=== PATIENT | male | born 1960 | race African-American/Black ===

== ENCOUNTER 2022-10-24 10:19 | Inpatient (IN) | payer OTHER ==
[2022-10-24 15:55] VITALS: BMI 20.7
[2022-10-24] MEDS ORDERED: IBUPROFEN 600 MG TABLET (FP) PO PRN (17:15)
[2022-10-24] MEDS ORDERED: BISMUTH SUBSALICYLATE 524 MG/30 ML PO PRN (17:15)
[2022-10-24] MEDS ORDERED: MAG HYDROX/AL HYDROX/SIMETH 30 ML UNIT-DOSE CUP PO PRN (17:15)
[2022-10-24] MEDS ORDERED: MAGNESIUM HYDROX 2400MG/30ML ORAL SUSPENSION 30 ML CUP PO PRN (17:15)
[2022-10-24] MEDS ORDERED: POLYETHYLENE GLYCOL (HEALTHYLAX) 3350 17 GM PACKET PO PRN (17:15)
[2022-10-24] MEDS ORDERED: ACETAMINOPHEN 325 MG TABLET (FP) PO PRN ×2 (17:15)
[2022-10-24] MEDS ORDERED: NALOXONE HCL (KLOXXADO) 8 MG SPRAY NS PRN (17:15)
[2022-10-24] MEDS ORDERED: NICOTINE 10 MG CARTRIDGE (INHALER) IH PRN (17:15)
[2022-10-24] MEDS ORDERED: DICYCLOMINE HCL 10 MG CAPSULE PO PRN (17:15)
[2022-10-24] MEDS ORDERED: LOPERAMIDE HCL 2 MG CAPSULE PO PRN (17:15)
[2022-10-24] MEDS ORDERED: chlordiazePOXIDE HCL 25 MG CAPSULE PO PRN (17:15)
[2022-10-24] MEDS ORDERED: BENZOCAINE/MENTHOL (CHLORASEPTIC ) LOZENGE MM PRN (17:15)
[2022-10-24] MEDS ORDERED: ONDANSETRON *ODT* 4 MG TABLET SL PRN (17:15)
[2022-10-24] MEDS ORDERED: NICOTINE POLACRILEX 2 MG GUM BUC PRN (17:15)
[2022-10-24] MEDS ORDERED: IBUPROFEN 400 MG TABLET (FP) PO PRN (17:15)
[2022-10-24] MEDS: cloNIDine HCL 0.1 MG TABLET PO PRN ×2 (18:29→22:39)
[2022-10-24] MEDS ORDERED: methaDONE HCL 10 MG TABLET (FOR DETOX USE ONLY) PO ONE (18:30)
[2022-10-24] MEDS: MELATONIN 5 MG TABLETS PO SCH (22:38)
[2022-10-24] MEDS: THIAMINE HCL 100 MG TABLET (FP) PO SCH (22:38)
[2022-10-24] MEDS: chlordiazePOXIDE HCL 25 MG CAPSULE PO SCH (22:39)
[2022-10-25] MEDS: chlordiazePOXIDE HCL 25 MG CAPSULE PO SCH ×4 (06:01→22:13)
[2022-10-25] MEDS: cloNIDine HCL 0.1 MG TABLET PO PRN (07:15)
[2022-10-25] MEDS: METHOCARBAMOL 500 MG TABLET PO PRN (10:43)
[2022-10-25] MEDS: PRENATAL VITAMINS W/ FOLIC ACID TABLET (FP) PO SCH (10:43)
[2022-10-25] MEDS: ATENOLOL 25 MG TABLET (FP) PO SCH (10:43)
[2022-10-25] MEDS: NICOTINE 14 MG/24 HOURS TOPICAL PATCH TD SCH (10:46)
[2022-10-25] MEDS: THIAMINE HCL 100 MG TABLET (FP) PO SCH (22:12)
[2022-10-25] MEDS: MELATONIN 5 MG TABLETS PO SCH (22:13)
[2022-10-26] MEDS: chlordiazePOXIDE HCL 25 MG CAPSULE PO SCH ×4 (06:06→22:13)
[2022-10-26] MEDS ORDERED: methaDONE HCL 10 MG TABLET (FOR DETOX USE ONLY) PO ONE (10:00)
[2022-10-26] MEDS: PRENATAL VITAMINS W/ FOLIC ACID TABLET (FP) PO SCH (10:10)
[2022-10-26] MEDS: ATENOLOL 25 MG TABLET (FP) PO SCH (10:11)
[2022-10-26] MEDS: METHOCARBAMOL 500 MG TABLET PO PRN (10:11)
[2022-10-26] MEDS: hydrOXYzine PAMOATE 25 MG CAPSULE (FP) PO PRN (10:11)
[2022-10-26] MEDS: NICOTINE 14 MG/24 HOURS TOPICAL PATCH TD SCH (10:12)
[2022-10-26 12:13] LABS: HEMATOCRIT 31.4 % (35.4-49); HEMOGLOBIN 10.4 GM/dL (11.7-16.9); MCH 28.1 pg (25.7-33.7); MCHC 33.1 g/dl (32.0-35.9); MEAN CELL VOLUME 85.1 fl (80-96); PLATELET COUNT 304 10^3/uL (134-434); RBC 3.69 M/mm3 (4.00-5.60); RDW 14.9 % (11.9-15.9); WHITE BLOOD COUNT 4.7 K/mm3 (4.0-10.0)
[2022-10-26 12:18] LABS: CALCIUM 8.6 mg/dL (8.5-10.1)
[2022-10-26 12:20] LABS: ALBUMIN 2.9 g/dl (3.4-5.0); BLOOD UREA NITROGEN 11.1 mg/dL (7-18)
[2022-10-26 12:23] LABS: CREATININE 0.9 mg/dL (0.55-1.3)
[2022-10-26 12:24] LABS: BILIRUBIN,TOTAL 0.2 mg/dL (0.2-1)
[2022-10-26 12:25] LABS: TOT PROT 5.9 g/dl (6.4-8.2)
[2022-10-26] MEDS: THIAMINE HCL 100 MG TABLET (FP) PO SCH (22:13)
[2022-10-26] MEDS: LACTULOSE 20 GM/30 ML UDC (FOR ORAL USE ONLY) PO SCH (22:14)
[2022-10-26] MEDS: MELATONIN 5 MG TABLETS PO SCH (22:15)
[2022-10-27] MEDS ORDERED: chlordiazePOXIDE HCL 10 MG CAPSULE PO PRN
[2022-10-27] MEDS: chlordiazePOXIDE HCL 10 MG CAPSULE PO SCH ×4 (05:53→22:22)
[2022-10-27] MEDS: LACTULOSE 20 GM/30 ML UDC (FOR ORAL USE ONLY) PO SCH ×3 (05:54→22:22)
[2022-10-27] MEDS: NICOTINE 14 MG/24 HOURS TOPICAL PATCH TD SCH (10:27)
[2022-10-27] MEDS: PRENATAL VITAMINS W/ FOLIC ACID TABLET (FP) PO SCH (10:28)
[2022-10-27] MEDS: METHOCARBAMOL 500 MG TABLET PO PRN (10:28)
[2022-10-27] MEDS: ATENOLOL 25 MG TABLET (FP) PO SCH (10:28)
[2022-10-27] MEDS: hydrOXYzine PAMOATE 25 MG CAPSULE (FP) PO PRN (10:28)
[2022-10-27] MEDS: THIAMINE HCL 100 MG TABLET (FP) PO SCH (22:21)
[2022-10-27] MEDS: MELATONIN 5 MG TABLETS PO SCH (22:21)
[2022-10-28] MEDS: LACTULOSE 20 GM/30 ML UDC (FOR ORAL USE ONLY) PO SCH ×3 (05:33→22:38)
[2022-10-28] MEDS: chlordiazePOXIDE HCL 10 MG CAPSULE PO SCH ×2 (05:33→17:32)
[2022-10-28] MEDS ORDERED: methaDONE HCL 10 MG TABLET (FOR DETOX USE ONLY) PO ONE (10:00)
[2022-10-28] MEDS: ATENOLOL 25 MG TABLET (FP) PO SCH (10:25)
[2022-10-28] MEDS: NICOTINE 14 MG/24 HOURS TOPICAL PATCH TD SCH (10:25)
[2022-10-28] MEDS: METHOCARBAMOL 500 MG TABLET PO PRN (10:25)
[2022-10-28] MEDS: PRENATAL VITAMINS W/ FOLIC ACID TABLET (FP) PO SCH (10:25)
[2022-10-28] MEDS: hydrOXYzine PAMOATE 25 MG CAPSULE (FP) PO PRN (10:25)
[2022-10-28] MEDS: THIAMINE HCL 100 MG TABLET (FP) PO SCH (22:37)
[2022-10-28] MEDS: MELATONIN 5 MG TABLETS PO SCH (22:38)
[2022-10-29] MEDS ORDERED: chlordiazePOXIDE HCL 10 MG CAPSULE PO ONE (05:00)
[2022-10-29] MEDS: LACTULOSE 20 GM/30 ML UDC (FOR ORAL USE ONLY) PO SCH (05:25)
[2022-10-29 09:17] VITALS: BP 116/66; PULSE 60; RESP 18; TEMP 98.4
[2022-10-29] MEDS: NICOTINE 14 MG/24 HOURS TOPICAL PATCH TD SCH (10:41)
[2022-10-29] MEDS: PRENATAL VITAMINS W/ FOLIC ACID TABLET (FP) PO SCH (10:41)
[2022-10-29] MEDS: ATENOLOL 25 MG TABLET (FP) PO SCH (10:42)
[2022-10-29] MEDS: METHOCARBAMOL 500 MG TABLET PO PRN (10:44)
[2022-10-29] MEDS: hydrOXYzine PAMOATE 25 MG CAPSULE (FP) PO PRN (10:44)
== END 2022-10-29 11:37 | disposition other institution (70) | DRG 773 ==
LOC: YASAS 10:19 → Y6N 17:49
PROVIDERS: ADMIT Allergy & Immunology; ATTEND Surgery
PROC: HZ2ZZZZ Detoxification Services for Substance Abuse Treatment (ICD-10-PCS; principal; 2022-10-24)
DX: F11.23 Opioid dependence with withdrawal (principal); F10.230 Alcohol dependence with withdrawal, uncomplicated; F14.20 Cocaine dependence, uncomplicated; F17.210 Nicotine dependence, cigarettes, uncomplicated; F19.24 Other psychoactive substance dependence with psychoactive substance-induced mood disorder; F51.05 Insomnia due to other mental disorder; F41.9 Anxiety disorder, unspecified; R79.89 Other specified abnormal findings of blood chemistry; R76.11 Nonspecific reaction to tuberculin skin test without active tuberculosis; Z56.0 Unemployment, unspecified; Z59.02 Unsheltered homelessness
CPT/HCPCS: 36415; 71046-TC-FY; 80053; 82140; 85027; 86780; 93005; 93010; C9803-CS; U0003; U0005

== ENCOUNTER 2022-10-29 11:44 | Inpatient (IN) | payer OTHER ==
[2022-10-29] MEDS ORDERED: BENZOCAINE/MENTHOL (CHLORASEPTIC ) LOZENGE MM PRN (12:41)
[2022-10-29] MEDS ORDERED: MAG HYDROX/AL HYDROX/SIMETH 30 ML UNIT-DOSE CUP PO PRN (12:41)
[2022-10-29] MEDS ORDERED: MAGNESIUM HYDROX 2400MG/30ML ORAL SUSPENSION 30 ML CUP PO PRN (12:41)
[2022-10-29] MEDS ORDERED: P-EPHED 60MG/TRIPROLIDI 2.5MG TABLET PO PRN (12:41)
[2022-10-29] MEDS ORDERED: POLYETHYLENE GLYCOL (HEALTHYLAX) 3350 17 GM PACKET PO PRN (12:41)
[2022-10-29] MEDS ORDERED: ACETAMINOPHEN 325 MG TABLET (FP) PO PRN (12:41)
[2022-10-29] MEDS ORDERED: guaiFENesin 200 MG/10 ML 10 ML UNIT-DOSE CUPS PO PRN (12:41)
[2022-10-29] MEDS ORDERED: LOPERAMIDE HCL 2 MG CAPSULE PO PRN (12:41)
[2022-10-29] MEDS: LACTULOSE 20 GM/30 ML UDC (FOR ORAL USE ONLY) PO SCH (21:49)
[2022-10-29] MEDS: MELATONIN 5 MG TABLETS PO SCH (21:49)
[2022-10-29] MEDS: THIAMINE HCL 100 MG TABLET (FP) PO SCH (21:49)
[2022-10-30] MEDS: PRENATAL VITAMINS W/ FOLIC ACID TABLET (FP) PO SCH (09:50)
[2022-10-30] MEDS: LACTULOSE 20 GM/30 ML UDC (FOR ORAL USE ONLY) PO SCH ×2 (09:50→21:21)
[2022-10-30] MEDS: NICOTINE 7 MG/24 HOURS TOPICAL PATCH TD SCH (09:50)
[2022-10-30] MEDS: ATENOLOL 25 MG TABLET (FP) PO SCH (10:49)
[2022-10-30 14:26] LABS: URINE APPEARANCE CLEAR; URINE BILIRUBIN NEGATIVE (NEGATIVE); URINE COLOR YELLOW; URINE GLUCOSE (UA) NEGATIVE (NEGATIVE); URINE KETONE NEGATIVE (NEGATIVE); URINE LEUK ESTERASE NEGATIVE (NEGATIVE); URINE NITRITE NEGATIVE (NEGATIVE); URINE PROTEIN NEGATIVE (NEGATIVE); URINE UROBILINOGEN 0.2 mg/dL (0.2-1.0)
[2022-10-30] MEDS: MELATONIN 5 MG TABLETS PO SCH (21:21)
[2022-10-30] MEDS: THIAMINE HCL 100 MG TABLET (FP) PO SCH (21:21)
[2022-10-31] MEDS: PRENATAL VITAMINS W/ FOLIC ACID TABLET (FP) PO SCH (10:44)
[2022-10-31] MEDS: NICOTINE 7 MG/24 HOURS TOPICAL PATCH TD SCH (10:44)
[2022-10-31] MEDS: ATENOLOL 25 MG TABLET (FP) PO SCH (10:45)
[2022-10-31] MEDS: IBUPROFEN 400 MG TABLET (FP) PO PRN (10:45)
[2022-10-31] MEDS: LACTULOSE 20 GM/30 ML UDC (FOR ORAL USE ONLY) PO SCH ×2 (10:46→21:29)
[2022-10-31] MEDS: MELATONIN 5 MG TABLETS PO SCH (21:28)
[2022-10-31] MEDS: THIAMINE HCL 100 MG TABLET (FP) PO SCH (21:28)
[2022-11-01] MEDS: hydrOXYzine PAMOATE 25 MG CAPSULE (FP) PO PRN (06:30)
[2022-11-01] MEDS: PRENATAL VITAMINS W/ FOLIC ACID TABLET (FP) PO SCH (10:22)
[2022-11-01] MEDS: ATENOLOL 25 MG TABLET (FP) PO SCH (10:23)
[2022-11-01] MEDS: NICOTINE 7 MG/24 HOURS TOPICAL PATCH TD SCH (10:23)
[2022-11-01] MEDS: LACTULOSE 20 GM/30 ML UDC (FOR ORAL USE ONLY) PO SCH ×2 (10:23→21:10)
[2022-11-01] MEDS: IBUPROFEN 400 MG TABLET (FP) PO PRN (10:24)
[2022-11-01] MEDS: THIAMINE HCL 100 MG TABLET (FP) PO SCH (21:10)
[2022-11-01] MEDS: MELATONIN 5 MG TABLETS PO SCH (21:10)
[2022-11-02] MEDS: cloNIDine HCL 0.1 MG TABLET PO PRN (06:20)
[2022-11-02] MEDS: hydrOXYzine PAMOATE 25 MG CAPSULE (FP) PO PRN ×2 (06:20→21:28)
[2022-11-02] MEDS: PRENATAL VITAMINS W/ FOLIC ACID TABLET (FP) PO SCH (09:40)
[2022-11-02] MEDS: ATENOLOL 25 MG TABLET (FP) PO SCH (09:40)
[2022-11-02] MEDS: NICOTINE 7 MG/24 HOURS TOPICAL PATCH TD SCH (09:40)
[2022-11-02] MEDS: LACTULOSE 20 GM/30 ML UDC (FOR ORAL USE ONLY) PO SCH ×2 (09:40→21:28)
[2022-11-02] MEDS: IBUPROFEN 400 MG TABLET (FP) PO PRN ×2 (09:41→21:28)
[2022-11-02] MEDS: THIAMINE HCL 100 MG TABLET (FP) PO SCH (21:27)
[2022-11-02] MEDS: MELATONIN 5 MG TABLETS PO SCH (21:27)
[2022-11-03] MEDS: cloNIDine HCL 0.1 MG TABLET PO PRN (05:56)
[2022-11-03] MEDS: hydrOXYzine PAMOATE 25 MG CAPSULE (FP) PO PRN (05:56)
[2022-11-03] MEDS: PRENATAL VITAMINS W/ FOLIC ACID TABLET (FP) PO SCH (10:14)
[2022-11-03] MEDS: LACTULOSE 20 GM/30 ML UDC (FOR ORAL USE ONLY) PO SCH ×2 (10:14→21:59)
[2022-11-03] MEDS: ATENOLOL 25 MG TABLET (FP) PO SCH (10:14)
[2022-11-03] MEDS: NICOTINE 7 MG/24 HOURS TOPICAL PATCH TD SCH (10:15)
[2022-11-03] MEDS: THIAMINE HCL 100 MG TABLET (FP) PO SCH (21:59)
[2022-11-03] MEDS: MELATONIN 5 MG TABLETS PO SCH (21:59)
[2022-11-03] MEDS: IBUPROFEN 400 MG TABLET (FP) PO PRN (22:00)
[2022-11-04] MEDS: hydrOXYzine PAMOATE 25 MG CAPSULE (FP) PO PRN (05:49)
[2022-11-04] MEDS: PRENATAL VITAMINS W/ FOLIC ACID TABLET (FP) PO SCH (10:06)
[2022-11-04] MEDS: ATENOLOL 25 MG TABLET (FP) PO SCH (10:06)
[2022-11-04] MEDS: NICOTINE 7 MG/24 HOURS TOPICAL PATCH TD SCH (10:06)
[2022-11-04] MEDS: LACTULOSE 20 GM/30 ML UDC (FOR ORAL USE ONLY) PO SCH ×2 (10:06→21:29)
[2022-11-04] MEDS: IBUPROFEN 400 MG TABLET (FP) PO PRN ×2 (10:08→21:29)
[2022-11-04] MEDS: NICOTINE 10 MG CARTRIDGE (INHALER) IH PRN (10:08)
[2022-11-04] MEDS: THIAMINE HCL 100 MG TABLET (FP) PO SCH (21:29)
[2022-11-04] MEDS: MELATONIN 5 MG TABLETS PO SCH (21:29)
[2022-11-05] MEDS: cloNIDine HCL 0.1 MG TABLET PO PRN (06:24)
[2022-11-05] MEDS: hydrOXYzine PAMOATE 25 MG CAPSULE (FP) PO PRN (06:25)
[2022-11-05] MEDS: ATENOLOL 25 MG TABLET (FP) PO SCH (10:49)
[2022-11-05] MEDS: PRENATAL VITAMINS W/ FOLIC ACID TABLET (FP) PO SCH (10:49)
[2022-11-05] MEDS: NICOTINE 7 MG/24 HOURS TOPICAL PATCH TD SCH (10:49)
[2022-11-05] MEDS: LACTULOSE 20 GM/30 ML UDC (FOR ORAL USE ONLY) PO SCH ×2 (10:49→21:10)
[2022-11-05] MEDS: NICOTINE 10 MG CARTRIDGE (INHALER) IH PRN (10:50)
[2022-11-05] MEDS: MELATONIN 5 MG TABLETS PO SCH (21:10)
[2022-11-05] MEDS: IBUPROFEN 400 MG TABLET (FP) PO PRN (21:10)
[2022-11-05] MEDS: THIAMINE HCL 100 MG TABLET (FP) PO SCH (21:10)
[2022-11-06] MEDS: hydrOXYzine PAMOATE 25 MG CAPSULE (FP) PO PRN (06:46)
[2022-11-06] MEDS: cloNIDine HCL 0.1 MG TABLET PO PRN (06:46)
[2022-11-06] MEDS: PRENATAL VITAMINS W/ FOLIC ACID TABLET (FP) PO SCH (09:43)
[2022-11-06] MEDS: LACTULOSE 20 GM/30 ML UDC (FOR ORAL USE ONLY) PO SCH ×2 (09:44→21:48)
[2022-11-06] MEDS: ATENOLOL 25 MG TABLET (FP) PO SCH (09:44)
[2022-11-06] MEDS: NICOTINE 7 MG/24 HOURS TOPICAL PATCH TD SCH (09:45)
[2022-11-06] MEDS: IBUPROFEN 400 MG TABLET (FP) PO PRN (21:48)
[2022-11-06] MEDS: THIAMINE HCL 100 MG TABLET (FP) PO SCH (21:48)
[2022-11-06] MEDS: MELATONIN 5 MG TABLETS PO SCH (21:48)
[2022-11-07] MEDS: cloNIDine HCL 0.1 MG TABLET PO PRN (06:38)
[2022-11-07] MEDS: hydrOXYzine PAMOATE 25 MG CAPSULE (FP) PO PRN (06:38)
[2022-11-07] MEDS: PRENATAL VITAMINS W/ FOLIC ACID TABLET (FP) PO SCH (10:27)
[2022-11-07] MEDS: NICOTINE 7 MG/24 HOURS TOPICAL PATCH TD SCH (10:27)
[2022-11-07] MEDS: ATENOLOL 25 MG TABLET (FP) PO SCH (10:27)
[2022-11-07] MEDS: LACTULOSE 20 GM/30 ML UDC (FOR ORAL USE ONLY) PO SCH ×2 (10:27→21:22)
[2022-11-07] MEDS: MELATONIN 5 MG TABLETS PO SCH (21:21)
[2022-11-07] MEDS: THIAMINE HCL 100 MG TABLET (FP) PO SCH (21:21)
[2022-11-07] MEDS: IBUPROFEN 400 MG TABLET (FP) PO PRN (21:22)
[2022-11-08] MEDS: hydrOXYzine PAMOATE 25 MG CAPSULE (FP) PO PRN (06:52)
[2022-11-08] MEDS: cloNIDine HCL 0.1 MG TABLET PO PRN (06:52)
[2022-11-08] MEDS: PRENATAL VITAMINS W/ FOLIC ACID TABLET (FP) PO SCH (10:12)
[2022-11-08] MEDS: ATENOLOL 25 MG TABLET (FP) PO SCH (10:12)
[2022-11-08] MEDS: LACTULOSE 20 GM/30 ML UDC (FOR ORAL USE ONLY) PO SCH ×2 (10:12→21:33)
[2022-11-08] MEDS: NICOTINE 7 MG/24 HOURS TOPICAL PATCH TD SCH (10:12)
[2022-11-08] MEDS: IBUPROFEN 400 MG TABLET (FP) PO PRN (10:13)
[2022-11-08] MEDS: MELATONIN 5 MG TABLETS PO SCH (21:33)
[2022-11-08] MEDS: THIAMINE HCL 100 MG TABLET (FP) PO SCH (21:33)
[2022-11-09] MEDS: NICOTINE 7 MG/24 HOURS TOPICAL PATCH TD SCH (10:14)
[2022-11-09] MEDS: ATENOLOL 25 MG TABLET (FP) PO SCH (10:14)
[2022-11-09] MEDS: IBUPROFEN 400 MG TABLET (FP) PO PRN (10:14)
[2022-11-09] MEDS: LACTULOSE 20 GM/30 ML UDC (FOR ORAL USE ONLY) PO SCH ×2 (10:14→21:30)
[2022-11-09] MEDS: PRENATAL VITAMINS W/ FOLIC ACID TABLET (FP) PO SCH (10:14)
[2022-11-09] MEDS: NICOTINE 10 MG CARTRIDGE (INHALER) IH PRN (10:16)
[2022-11-09] MEDS: MELATONIN 5 MG TABLETS PO SCH (21:30)
[2022-11-09] MEDS: THIAMINE HCL 100 MG TABLET (FP) PO SCH (21:30)
[2022-11-10] MEDS: PRENATAL VITAMINS W/ FOLIC ACID TABLET (FP) PO SCH (09:54)
[2022-11-10] MEDS: LACTULOSE 20 GM/30 ML UDC (FOR ORAL USE ONLY) PO SCH ×2 (09:54→22:00)
[2022-11-10] MEDS: ATENOLOL 25 MG TABLET (FP) PO SCH (09:54)
[2022-11-10] MEDS: NICOTINE 7 MG/24 HOURS TOPICAL PATCH TD SCH (09:55)
[2022-11-10] MEDS: THIAMINE HCL 100 MG TABLET (FP) PO SCH (22:00)
[2022-11-10] MEDS: MELATONIN 5 MG TABLETS PO SCH (22:00)
[2022-11-11] MEDS: LACTULOSE 20 GM/30 ML UDC (FOR ORAL USE ONLY) PO SCH ×2 (10:34→21:28)
[2022-11-11] MEDS: NICOTINE 7 MG/24 HOURS TOPICAL PATCH TD SCH (10:35)
[2022-11-11] MEDS: PRENATAL VITAMINS W/ FOLIC ACID TABLET (FP) PO SCH (10:35)
[2022-11-11] MEDS: ATENOLOL 25 MG TABLET (FP) PO SCH (10:35)
[2022-11-11] MEDS: IBUPROFEN 400 MG TABLET (FP) PO PRN (10:35)
[2022-11-11] MEDS: THIAMINE HCL 100 MG TABLET (FP) PO SCH (21:28)
[2022-11-11] MEDS: MELATONIN 5 MG TABLETS PO SCH (21:28)
[2022-11-12] MEDS: hydrOXYzine PAMOATE 25 MG CAPSULE (FP) PO PRN (06:03)
[2022-11-12] MEDS: cloNIDine HCL 0.1 MG TABLET PO PRN (06:03)
[2022-11-12 07:03] VITALS: RESP 18; TEMP 97.5
[2022-11-12 08:49] VITALS: BP 108/71; PULSE 75
[2022-11-12] MEDS: LACTULOSE 20 GM/30 ML UDC (FOR ORAL USE ONLY) PO SCH (09:07)
[2022-11-12] MEDS: PRENATAL VITAMINS W/ FOLIC ACID TABLET (FP) PO SCH (09:07)
[2022-11-12] MEDS: ATENOLOL 25 MG TABLET (FP) PO SCH (09:07)
[2022-11-12] MEDS: NICOTINE 7 MG/24 HOURS TOPICAL PATCH TD SCH (09:07)
== END 2022-11-12 09:18 | disposition home or self-care (01) | DRG 772 ==
LOC: YASAS 11:44 → Y3W 11:45
PROVIDERS: ADMIT Allergy & Immunology; ATTEND Psychiatry & Neurology Pain Medicine
PROC: HZ42ZZZ Group Counseling for Substance Abuse Treatment, Cognitive-Behavioral (ICD-10-PCS; principal; 2022-10-29)
DX: F11.20 Opioid dependence, uncomplicated (principal); F10.20 Alcohol dependence, uncomplicated; F14.20 Cocaine dependence, uncomplicated; F17.210 Nicotine dependence, cigarettes, uncomplicated; F19.24 Other psychoactive substance dependence with psychoactive substance-induced mood disorder; F51.05 Insomnia due to other mental disorder; F32.A Depression, unspecified; F41.9 Anxiety disorder, unspecified; I10 Essential (primary) hypertension; Z56.0 Unemployment, unspecified; Z59.00 Homelessness unspecified
CPT/HCPCS: 81003; 82140

== ENCOUNTER 2023-10-14 13:01 | Inpatient (IN) | payer OTHER ==
[2023-10-14 13:24] VITALS: BMI 21.2
[2023-10-14] MEDS ORDERED: POLYETHYLENE GLYCOL (HEALTHYLAX) 3350 17 GM PACKET PO PRN (13:46)
[2023-10-14] MEDS ORDERED: NALOXONE HCL (KLOXXADO) 8 MG SPRAY NS PRN (13:46)
[2023-10-14] MEDS ORDERED: guaiFENesin 600 MG TABLET.ER (FP) PO PRN (13:46)
[2023-10-14] MEDS ORDERED: IBUPROFEN 600 MG TABLET (FP) PO PRN (13:46)
[2023-10-14] MEDS ORDERED: NICOTINE POLACRILEX 2 MG GUM BUC PRN (13:46)
[2023-10-14] MEDS ORDERED: MAG HYDROX/AL HYDROX/SIMETH 30 ML UNIT-DOSE CUP PO PRN (13:46)
[2023-10-14] MEDS ORDERED: BENZOCAINE/MENTHOL (CHLORASEPTIC ) LOZENGE MM PRN (13:46)
[2023-10-14] MEDS ORDERED: LORazepam 1 MG TABLET PO PRN (13:46)
[2023-10-14] MEDS ORDERED: hydrOXYzine PAMOATE 25 MG CAPSULE (FP) PO PRN (13:46)
[2023-10-14] MEDS ORDERED: MAGNESIUM HYDROX 2400MG/30ML ORAL SUSPENSION 30 ML CUP PO PRN (13:46)
[2023-10-14] MEDS ORDERED: ONDANSETRON *ODT* 4 MG TABLET SL PRN (13:46)
[2023-10-14] MEDS ORDERED: NALOXONE HCL 0.4 MG/ML VIAL IM PRN (13:46)
[2023-10-14] MEDS ORDERED: IBUPROFEN 400 MG TABLET (FP) PO PRN (13:46)
[2023-10-14] MEDS ORDERED: DICYCLOMINE HCL 10 MG CAPSULE PO PRN (13:46)
[2023-10-14] MEDS ORDERED: BENZONATATE 200 MG CAPSULE PO PRN (13:46)
[2023-10-14] MEDS ORDERED: LOPERAMIDE HCL 2 MG CAPSULE PO PRN (13:46)
[2023-10-14] MEDS ORDERED: ACETAMINOPHEN 325 MG TABLET (FP) PO PRN (13:46)
[2023-10-14] MEDS ORDERED: BISMUTH SUBSALICYLATE 262 MG/15 ML BTL PO PRN (13:46)
[2023-10-14] MEDS ORDERED: diazePAM 5 MG TABLET PO PRN (13:49)
[2023-10-14] MEDS ORDERED: BUPRENORPHINE HCL 150 MCG, BUPRENORPHINE HCL 75 MCG BC PRN (13:49)
[2023-10-14] MEDS ORDERED: cloNIDine HCL 0.1 MG TABLET PO ONE (13:49)
[2023-10-14] MEDS ORDERED: BUPRENORPHINE HCL 150 MCG, BUPRENORPHINE HCL 75 MCG BC ONE (13:49)
[2023-10-14] MEDS ORDERED: BUPRENORPHINE HCL 150 MCG FILM BC ONE (14:40)
[2023-10-14] MEDS ORDERED: cloNIDine HCL 0.1 MG TABLET ONE (14:41)
[2023-10-14] MEDS ORDERED: BUPRENORPHINE HCL 75 MCG FILM BC ONE (14:41)
[2023-10-14] MEDS: PRENATAL VITAMINS W/ FOLIC ACID TABLET (FP) PO SCH (14:47)
[2023-10-14] MEDS ORDERED: PRENATAL VITAMINS W/ FOLIC ACID TABLET (FP) PO ONE (14:47)
[2023-10-14] MEDS: LORazepam 2 MG TABLET PO SCH ×2 (17:16→22:18)
[2023-10-14] MEDS ORDERED: cloNIDine HCL 0.1 MG TABLET PO PRN (17:49)
[2023-10-14] MEDS: MELATONIN 5 MG TABLETS PO SCH (22:18)
[2023-10-14] MEDS: THIAMINE HCL 100 MG TABLET (FP) PO SCH (22:18)
[2023-10-15] MEDS ORDERED: BUPRENORPHINE HCL 150 MCG, BUPRENORPHINE HCL 75 MCG BC PRN
[2023-10-15] MEDS: LORazepam 2 MG TABLET PO SCH ×4 (05:41→23:03)
[2023-10-15] MEDS: BUPRENORPHINE HCL 150 MCG, BUPRENORPHINE HCL 75 MCG BC SCH ×2 (05:46→17:15)
[2023-10-15] MEDS: ATENOLOL 25 MG TABLET (FP) PO SCH (10:35)
[2023-10-15] MEDS: PRENATAL VITAMINS W/ FOLIC ACID TABLET (FP) PO SCH (10:35)
[2023-10-15 11:19] LABS: HEMATOCRIT 37.1 % (35.4-49); HEMOGLOBIN 11.7 GM/dL (11.7-16.9); MCH 26.5 pg (25.7-33.7); MCHC 31.6 g/dl (32.0-35.9); MEAN CELL VOLUME 83.8 fl (80-96); MEAN PLT VOLUME 7.9 fl (7.5-11.1); PLATELET COUNT 293 10^3/uL (134-434); RBC 4.42 M/mm3 (4.00-5.60); RDW 16.8 % (11.9-15.9); WHITE BLOOD COUNT 3.3 K/mm3 (4.0-10.0)
[2023-10-15 11:58] LABS: CHLORIDE 110 mmol/L (98-107); POTASSIUM 4.4 mmol/L (3.5-5.1); SODIUM 143 mmol/L (136-145)
[2023-10-15 12:00] LABS: CALCIUM 9.5 mg/dL (8.5-10.1)
[2023-10-15 12:01] LABS: ALBUMIN 3.2 g/dl (3.4-5.0); ANION GAP 7 mmol/L (4-13); CO2 26 mmol/L (21-32); GLUCOSE,RANDOM 96 mg/dL (74-106)
[2023-10-15 12:03] LABS: BLOOD UREA NITROGEN 13.2 mg/dL (7-18); SGPT/ALT 18 U/L (13-61)
[2023-10-15 12:04] LABS: CREATININE 0.8 mg/dL (0.55-1.3); SGOT/AST 16 U/L (15-37)
[2023-10-15 12:05] LABS: BILIRUBIN,TOTAL 0.2 mg/dL (0.2-1); TOT PROT 6.6 g/dl (6.4-8.2)
[2023-10-15 12:06] LABS: ALK PHOS 57 U/L (45-117)
[2023-10-15] MEDS: MELATONIN 5 MG TABLETS PO SCH (22:50)
[2023-10-15] MEDS: THIAMINE HCL 100 MG TABLET (FP) PO SCH (22:55)
[2023-10-15] MEDS: METHOCARBAMOL 500 MG TABLET PO PRN (23:02)
[2023-10-16] MEDS: LORazepam 1 MG TABLET PO SCH ×4 (05:28→22:23)
[2023-10-16] MEDS: BUPRENORPHINE HCL 450 MCG FILM BC SCH ×2 (05:28→17:36)
[2023-10-16] MEDS: ATENOLOL 25 MG TABLET (FP) PO SCH (10:23)
[2023-10-16] MEDS: PRENATAL VITAMINS W/ FOLIC ACID TABLET (FP) PO SCH (10:23)
[2023-10-16] MEDS: THIAMINE HCL 100 MG TABLET (FP) PO SCH (22:23)
[2023-10-16] MEDS: METHOCARBAMOL 500 MG TABLET PO PRN (22:23)
[2023-10-16] MEDS: MELATONIN 5 MG TABLETS PO SCH (22:24)
[2023-10-17] MEDS ORDERED: LORazepam 0.5 MG TABLET PO PRN
[2023-10-17] MEDS: LORazepam 0.5 MG TABLET PO SCH ×4 (05:20→22:10)
[2023-10-17] MEDS: BUPRENORPHINE/NALOXONE 4 MG/1 MG FILM PACKET SL SCH ×2 (05:20→17:32)
[2023-10-17] MEDS: PRENATAL VITAMINS W/ FOLIC ACID TABLET (FP) PO SCH (10:22)
[2023-10-17] MEDS: ATENOLOL 25 MG TABLET (FP) PO SCH (10:23)
[2023-10-17 18:18] VITALS: RESP 16
[2023-10-17 21:12] VITALS: TEMP 97.7
[2023-10-17] MEDS: METHOCARBAMOL 500 MG TABLET PO PRN (22:10)
[2023-10-17] MEDS: THIAMINE HCL 100 MG TABLET (FP) PO SCH (22:10)
[2023-10-17] MEDS: MELATONIN 5 MG TABLETS PO SCH (22:12)
[2023-10-18] MEDS ORDERED: LORazepam 0.5 MG TABLET PO ONE (05:00)
[2023-10-18] MEDS ORDERED: BUPRENORPHINE/NALOXONE 8 MG/2 MG FILM PACKET SL ONE (06:00)
[2023-10-18 09:32] VITALS: BP 116/68; PULSE 55
[2023-10-18] MEDS ORDERED: amLODIPine BESYLATE 10 MG TABLET (FP) PO SCH (10:00)
[2023-10-18] MEDS: PRENATAL VITAMINS W/ FOLIC ACID TABLET (FP) PO SCH (10:31)
[2023-10-18] MEDS: ATENOLOL 25 MG TABLET (FP) PO SCH (10:31)
== END 2023-10-18 13:00 | disposition other institution (70) | DRG 773 ==
LOC: YASAS 13:01 → Y6N 15:28
PROVIDERS: ADMIT Allergy & Immunology; ATTEND Psychiatry & Neurology Pain Medicine
PROC: HZ2ZZZZ Detoxification Services for Substance Abuse Treatment (ICD-10-PCS; principal; 2023-10-14)
DX: F11.23 Opioid dependence with withdrawal (principal); F10.230 Alcohol dependence with withdrawal, uncomplicated; F13.20 Sedative, hypnotic or anxiolytic dependence, uncomplicated; F14.20 Cocaine dependence, uncomplicated; F17.210 Nicotine dependence, cigarettes, uncomplicated; F19.282 Other psychoactive substance dependence with psychoactive substance-induced sleep disorder; F19.24 Other psychoactive substance dependence with psychoactive substance-induced mood disorder; F51.05 Insomnia due to other mental disorder; I10 Essential (primary) hypertension; R76.11 Nonspecific reaction to tuberculin skin test without active tuberculosis
CPT/HCPCS: 36415; 71046-TC-FY; 80053; 80307; 85027; 86780; 87635; 87811; 93005; 93010

== ENCOUNTER 2023-10-18 13:13 | Inpatient (IN) | payer OTHER ==
[2023-10-18] MEDS ORDERED: MAGNESIUM HYDROX 2400MG/30ML ORAL SUSPENSION 30 ML CUP PO PRN (14:56)
[2023-10-18] MEDS ORDERED: ACETAMINOPHEN 325 MG TABLET (FP) PO PRN (14:56)
[2023-10-18] MEDS ORDERED: IBUPROFEN 400 MG TABLET (FP) PO PRN (14:56)
[2023-10-18] MEDS ORDERED: BENZOCAINE/MENTHOL (CHLORASEPTIC ) LOZENGE MM PRN (14:56)
[2023-10-18] MEDS ORDERED: NALOXONE HCL 0.4 MG/ML VIAL IVPUSH PRN (14:56)
[2023-10-18] MEDS ORDERED: NALOXONE HCL (KLOXXADO) 8 MG SPRAY NS PRN (14:56)
[2023-10-18] MEDS ORDERED: METHOCARBAMOL 500 MG TABLET PO PRN (14:56)
[2023-10-18] MEDS ORDERED: MAG HYDROX/AL HYDROX/SIMETH 30 ML UNIT-DOSE CUP PO PRN (14:56)
[2023-10-18] MEDS ORDERED: LOPERAMIDE HCL 2 MG CAPSULE PO PRN (14:56)
[2023-10-18] MEDS ORDERED: BENZONATATE 200 MG CAPSULE PO PRN (14:56)
[2023-10-18] MEDS ORDERED: POLYETHYLENE GLYCOL (HEALTHYLAX) 3350 17 GM PACKET PO PRN (14:56)
[2023-10-18] MEDS ORDERED: hydrOXYzine PAMOATE 25 MG CAPSULE (FP) PO PRN (14:56)
[2023-10-18] MEDS ORDERED: IBUPROFEN 600 MG TABLET (FP) PO PRN (14:56)
[2023-10-18] MEDS ORDERED: NICOTINE POLACRILEX 4 MG GUM BUC PRN (14:56)
[2023-10-18] MEDS ORDERED: guaiFENesin 600 MG TABLET.ER (FP) PO PRN (14:56)
[2023-10-18] MEDS: MELATONIN 5 MG TABLETS PO SCH (21:14)
[2023-10-18] MEDS: THIAMINE HCL 100 MG TABLET (FP) PO SCH (21:14)
[2023-10-19] MEDS: PRENATAL VITAMINS W/ FOLIC ACID TABLET (FP) PO SCH (09:24)
[2023-10-19] MEDS: BUPRENORPHINE/NALOXONE 8 MG/2 MG FILM PACKET SL SCH (09:24)
[2023-10-19] MEDS: amLODIPine BESYLATE 10 MG TABLET (FP) PO SCH (09:24)
[2023-10-19] MEDS: NICOTINE 14 MG/24 HOURS TOPICAL PATCH TD SCH (09:24)
[2023-10-19] MEDS: ATENOLOL 25 MG TABLET (FP) PO SCH (09:57)
[2023-10-19] MEDS ORDERED: NICOTINE 14 MG/24 HOURS TOPICAL PATCH TD PRN (15:40)
[2023-10-19] MEDS: SUVOREXANT 10 MG TABLET PO PRN (22:33)
[2023-10-22] MEDS: SUVOREXANT 10 MG TABLET PO PRN (21:32)
[2023-10-25] MEDS: SUVOREXANT 10 MG TABLET PO PRN (21:18)
[2023-10-30] MEDS: SUVOREXANT 10 MG TABLET PO PRN (21:12)
[2023-10-31 13:26] VITALS: RESP 16
[2023-11-01 06:36] VITALS: TEMP 98.3
[2023-11-01 09:05] VITALS: BP 125/72; PULSE 66
== END 2023-11-01 09:31 | disposition home or self-care (01) | DRG 772 ==
LOC: YASAS 13:13 → Y3E 13:26
PROVIDERS: ADMIT Allergy & Immunology; ATTEND Psychiatry & Neurology Pain Medicine
PROC: HZ42ZZZ Group Counseling for Substance Abuse Treatment, Cognitive-Behavioral (ICD-10-PCS; principal; 2023-10-18)
DX: F11.20 Opioid dependence, uncomplicated (principal); F14.20 Cocaine dependence, uncomplicated; F10.20 Alcohol dependence, uncomplicated; F17.210 Nicotine dependence, cigarettes, uncomplicated; F41.9 Anxiety disorder, unspecified; F32.A Depression, unspecified; I10 Essential (primary) hypertension; Z86.11 Personal history of tuberculosis
CPT/HCPCS: 36415; 82140; 86803